=== PATIENT | female | born 1995 | race Caucasian/White ===

== ENCOUNTER 2024-07-10 00:28 | Inpatient (IN) | payer MEDICAID ==
[~2024-07-10] VITALS: Ht 160 cm; Wt 74.8 kg
[2024-07-10 01:08] LABS: BASOPHILS % 0.6 % (0.0-2.0); EOSINOPHILS % 1.1 % (0.0-5.0); HEMATOCRIT. 40.1 % (36.0-48.0); HEMOGLOBIN. 13.6 g/dL (12.0-16.0); LYMPHOCYTES % 35.8 % (20.0-50.0); MEAN CORPUSCULAR HEMOGLOBIN 29.3 pg (28.0-32.0); MEAN CORPUSCULAR HGB CONC 33.9 g/dL (31.0-37.0); MEAN CORPUSCULAR VOLUME 86.5 fL (81.0-99.0); MEAN PLATELET VOLUME 9.7 fl (7.4-10.4); MONOCYTES % 5.2 % (2.0-8.0); NEUTROPHILS % 57.3 % (40.0-76.0); PLATELET 228 x1000/uL (130-400); RED BLOOD CELL COUNT 4.63 mill/uL (4.2-5.4); WHITE BLOOD COUNT 8.7 x1000/uL (4.5-11.0)
[2024-07-10 01:09] LABS: CHLORIDE 106 mEq/L (98-107); POTASSIUM 3.7 mEq/L (3.5-5.1); SODIUM 137 mEq/L (136-145)
[2024-07-10 01:10] LABS: CALCIUM 9.4 mg/dL (8.7-10.4); CARBON DIOXIDE 27 mEq/L (21-32)
[2024-07-10 01:15] LABS: CREATININE 0.8 mg/dL (0.6-1.0); GLUCOSE 83 mg/dL (70-105); UREA NITROGEN BLOOD 7 mg/dL (9-23)
[2024-07-10 01:17] LABS: ALANINE AMINOTRANSFERASE 18 IU/L (10-49); ALBUMIN 4.4 g/dL (3.2-4.8); ASPARTATE AMINOTRANSFERASE 18 IU/L (<34); BILIRUBIN TOTAL 0.4 mg/dL (0.1-1.0); PROTEIN TOTAL 7.6 g/dL (6.0-8.3)
[2024-07-10 01:26] LABS: HCG SCREEN NEGATIVE
[2024-07-10] MEDS: MORPHINE SULFATE 4 MG/ML INJ (FOR IV/IM USE) IV ONE ×2 (01:46→03:39)
[2024-07-10] MEDS: KETOROLAC 15MG/ML VIAL IV ONE (01:46)
[2024-07-10] MEDS: ONDANSETRON HCL 4MG/2ML INJ IV ONE (01:47)
[2024-07-10 02:17] LABS: CLARITY URINE CLOUDY (CLEAR); COLOR URINE YELLOW (YELLOW); GLUCOSE URINE NEGATIVE (NEGATIVE); KETONES URINE NEGATIVE (NEGATIVE); LEUKOCYTE ESTERASE URINE 3+ (NEGATIVE); NITRITE URINE NEGATIVE (NEGATIVE); OCCULT BLOOD URINE NEGATIVE (NEGATIVE); PROTEIN URINE NEGATIVE (NEGATIVE); SPECIFIC GRAVITY URINE 1.021 (1.005-1.030)
[2024-07-10 02:37] LABS: SQUAMOUS EPITHELIAL CELL URINE 1+ /lpf (RARE/1+)
[2024-07-10 02:39] LABS: RBC URINE 0-2 /hpf (0-2)
[2024-07-10 02:40] LABS: BACTERIA URINE 1+
[2024-07-10] MEDS ORDERED: ACETAMINOPHEN 325MG TABLET PO PRN ×2 (03:00)
[2024-07-10] MEDS ORDERED: KETOROLAC 30MG/ML VIAL IV PRN (03:00)
[2024-07-10] MEDS ORDERED: DIPHENHYDRAMINE 50MG/ML VIAL IV PRN (03:00)
[2024-07-10] MEDS ORDERED: ZOLPIDEM TARTRATE 5MG TABLET PO PRN (03:00)
[2024-07-10] MEDS: METRONIDAZOLE 500 MG PREMIX 100 ML IV ONE (03:00)
[2024-07-10] MEDS ORDERED: ONDANSETRON HCL 4MG/2ML INJ IV PRN (03:00)
[2024-07-10] MEDS ORDERED: NALOXONE HCL 0.4MG/ML VIAL IV PRN (03:15)
[2024-07-10] MEDS: SODIUM CHLORIDE 0.9% 1,000 ML IV SCH (03:39)
[2024-07-10] MEDS: CEFTRIAXONE 1GM/50ML 50 ML IV ONE (03:39)
[2024-07-10 04:15] VITALS: BP 105/71; PULSE 71; RESP 20; TEMP 36.50292; O2SAT 99
[2024-07-10] MEDS: LEVOFLOXACIN 500MG PREMIX 100 ML IV SCH (05:37)
[2024-07-10] MEDS: METRONIDAZOLE 500 MG PREMIX 100 ML IV NR (05:51)
[2024-07-10] MEDS: SODIUM CHLORIDE 0.9% 3ML FLUSH IVF SCH (06:03)
[2024-07-10 10:17] VITALS: BP 116/74; PULSE 72; RESP 18; TEMP 36.418
[2024-07-10] MEDS: MORPHINE SULFATE 4 MG/ML INJ (FOR IV/IM USE) IV PRN (10:36)
[2024-07-10 12:00] VITALS: BP 126/73; PULSE 77; RESP 21; TEMP 36.55848; O2SAT 98
[2024-07-10 15:51] VITALS: BP 116/74; PULSE 72; TEMP 98.4; O2SAT 100
== END 2024-07-10 16:15 | disposition home or self-care (01) ==
LOC: ER 00:48 → 5WST 02:45 → EDBEDREQTM 02:53 → EDBEDREQ 02:53 → 6EST 08:06
PROVIDERS: ADMIT Internal Medicine; ATTEND Internal Medicine
DX: K80.10 Calculus of gallbladder with chronic cholecystitis without obstruction (principal)
CPT/HCPCS: 36415; 76705; 80053; 81003; 84703; 85025; 99285; J0696; J1885; J1956; J2270; J2405; J3490

== ENCOUNTER 2024-07-15 01:00 | Emergency (ER) | payer MEDICAID ==
[~2024-07-15] VITALS: Ht 165.1 cm; Wt 75.0 kg
[2024-07-15 01:04] VITALS: TEMP 98.2; O2SAT 95
[2024-07-15 01:35] LABS: BASOPHILS % 0.5 % (0.0-2.0); CHLORIDE 107 mEq/L (98-107); HEMATOCRIT. 41.4 % (36.0-48.0); HEMOGLOBIN. 14.2 g/dL (12.0-16.0); LYMPHOCYTES % 19.7 % (20.0-50.0); MEAN CORPUSCULAR HEMOGLOBIN 29.7 pg (28.0-32.0); MEAN CORPUSCULAR HGB CONC 34.3 g/dL (31.0-37.0); MEAN CORPUSCULAR VOLUME 86.7 fL (81.0-99.0); MEAN PLATELET VOLUME 9.4 fl (7.4-10.4); MONOCYTES % 5.1 % (2.0-8.0); NEUTROPHILS % 73.7 % (40.0-76.0); PLATELET 221 x1000/uL (130-400); POTASSIUM 4.5 mEq/L (3.5-5.1); RED BLOOD CELL COUNT 4.77 mill/uL (4.2-5.4); RED CELL DISTRIBUTION WIDTH 13.4 % (11.6-14.6); SODIUM 139 mEq/L (136-145); WHITE BLOOD COUNT 8.8 x1000/uL (4.5-11.0)
[2024-07-15 01:36] LABS: CARBON DIOXIDE 28 mEq/L (21-32)
[2024-07-15 01:37] LABS: CALCIUM 9.5 mg/dL (8.7-10.4)
[2024-07-15 01:41] LABS: CREATININE 0.9 mg/dL (0.6-1.0); GLUCOSE 109 mg/dL (70-105); UREA NITROGEN BLOOD 12 mg/dL (9-23)
[2024-07-15 01:43] LABS: ALANINE AMINOTRANSFERASE 23 IU/L (10-49); ALBUMIN 4.4 g/dL (3.2-4.8); ASPARTATE AMINOTRANSFERASE 16 IU/L (<34)
[2024-07-15 01:44] LABS: BILIRUBIN TOTAL 0.3 mg/dL (0.1-1.0); PROTEIN TOTAL 7.9 g/dL (6.0-8.3)
[2024-07-15] MEDS: ONDANSETRON HCL 4MG/2ML INJ IV ONE (01:49)
[2024-07-15] MEDS: KETOROLAC 15MG/ML VIAL IV ONE ×2 (01:49→04:02)
[2024-07-15 01:53] LABS: BILIRUBIN DIRECT < 0.1 mg/dL (<=3.0)
[2024-07-15 02:25] LABS: HCG SCREEN NEGATIVE
[2024-07-15 02:53] LABS: CLARITY URINE TURBID (CLEAR); COLOR URINE YELLOW (YELLOW); GLUCOSE URINE NEGATIVE (NEGATIVE); KETONES URINE NEGATIVE (NEGATIVE); LEUKOCYTE ESTERASE URINE 2+ (NEGATIVE); NITRITE URINE NEGATIVE (NEGATIVE); OCCULT BLOOD URINE NEGATIVE (NEGATIVE); PH URINE 8.5 (4.5-8.0); PROTEIN URINE TRACE (NEGATIVE); SPECIFIC GRAVITY URINE 1.022 (1.005-1.030); UROBILINOGEN URINE 0.2 E.U./dL (0.2-1.0)
[2024-07-15 04:29] VITALS: BP 143/73; PULSE 84; RESP 16; O2SAT 98
[2024-07-15 05:07] LABS: RBC URINE 0-2 /hpf (0-2)
[2024-07-15 05:08] LABS: AMORPHOUS SEDIMENT URINE 2+ /lpf; BACTERIA URINE 1+; SQUAMOUS EPITHELIAL CELL URINE FEW /lpf (RARE/1+)
== END 2024-07-15 04:31 | disposition left against medical advice (07) ==
LOC: ER 01:00
DX: K80.20 Calculus of gallbladder without cholecystitis without obstruction (principal); Z00.00 Encounter for general adult medical examination without abnormal findings; Z53.29 Procedure and treatment not carried out because of patient's decision for other reasons
CPT/HCPCS: 99285; 96374; 76705; 96375; 80076; 80048; 81003; 81025; 84703; 83690; 85025; 36415; J1885; J2405